=== PATIENT | female | born 1985 | race Caucasian/White ===

== ENCOUNTER → 2017-10-19 | Outpatient (CLI) | payer OTHER ==
--- NOTE | 2017-10-19 09:29 | MR ---
EXAMINATION TYPE: MR brain wo/w con DATE OF EXAM: 10/19/2017 COMPARISON: NONE HISTORY: Headache TECHNIQUE: Multiplanar, multisequence images of the brain and brainstem is performed without and with IV contras t, utilizing 7 mL intravenous Gadavist . FINDINGS: Diffusion weighted images demonstrate no evidence of a recent infarct or other diffusion ab normality. There is no extra-axial fluid collection or significant white matter signal abnormality. The ventricular system and cisternal spaces are normal in size and appearance. The brain volume is age appropriate. Major intracranial flow voids are maintained. Midline structures demonstrate normal morphology. The craniocervical junction appears within normal limits. Post contrast images demonstrate no abnormal enhancement. No focal stenoses within the vascu lature. The dural venous sinuses appear patent. Very minimal mucosal thickening is seen within the et hmoid sinuses. The visualized sinuses are clear and the globes are intact. IMPRESSION: 1. No MR evidence of demyelinating disease, abnormal intracranial enhancement, or intracranial mass. No MR findings to correspond to the patient's complaint of headaches. 2. Very minimal mucosal thickening localized to the ethmoid sinuses only.
== END | disposition home or self-care (01) ==
LOC: RADMRIMAIN 08:33
PROVIDERS: ATTEND Internal Medicine
DX: G44.1 Vascular headache, not elsewhere classified (principal)
CPT/HCPCS: 70553; A9581

== ENCOUNTER → 2018-12-27 | Outpatient (CLI) | payer BC ==
[2018-12-27 10:04] VITALS: BP 134/94; PULSE 80; RESP 16; TEMP 98.1; BMI 27.4
--- NOTE | 2018-12-27 10:53 | P.HPOB ---
History of Present Illness H&P Date: 12/27/18 Chief Complaint: The patient is here for her routine gynecologic exam. This is a 33-year-old with an LMP of 12/04/2018. Her is status post vasectomy. The patient is here to assist establish with this office. It has been about one year since her last pelvic exam. The patient is without gynecologic complaints. Menses are regular every month. Review of Systems The patient's weight has been stable over the last year. She denies respiratory, cardiac, or G.I. problems. 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 No history of cervical dysplasia. History of Any Multi-Drug Resistant Organisms: None Reported Past Surgical History: Section Additional Past Surgical History / Comment(s): with 2nd . D&C following miscarriage. Past Psychological History: No Psychological Hx Reported Smoking Status: Never smoker Past Alcohol Use History: Occasional (2 per week) Past Drug Use History: None Reported Additional History: She has been since 2009. 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 Father Family Medical History: Myocardial Infarction ([place]) Additional Family Medical History / Comment(s): Paternal grandmother had colon cancer. Medications and Allergies Home Medications Medication Instructions Recorded Confirmed Type Multivitamin [Multivitamins Adult 1 each PO DAILY 12/27/18 12/27/18 History Gummies] Allergies Allergy/AdvReac Type Severity Reaction Status Date / Time No Known Allergies Allergy Unverified 12/27/18 10:04 Exam Vital Signs Temp Pulse Resp BP Pulse Ox 12/27/18 09:45 98.1 F 80 16 134/94 99 Intake and Output 12/26/18 12/27/18 12/27/18 22:59 06:59 14:59 Other: Weight 74.389 kg Height 5'5", weight 164 pounds, BMI 27.3. This is a well-developed well-nourished white female who is alert and oriented times 3 in no acute distress. HEENT: Within normal limits. NECK: Supple without mass or thyromegaly. CHEST AND LUNGS: Clear to auscultation. HEART: Regular rate and rhythm. BREASTS: Are without mass or discharge. AXILLARY EXAM: Negative for adenopathy. BACK: Negative for CVA tenderness. ABDOMEN: Soft, nontender, without palpable masses. PELVIC EXAM: Normal external genitalia. Cervix and vagina appear normal. There is no unusual discharge. The cervix is slightly friable upon doing the Pap smear. There is no evidence of prolapse. The uterus is midposition, nongravid size and nontender. There are no palpable adnexal masses or tenderness. RECTAL EXAM: negative for mass or tenderness and is negative for occult blood. EXTREMITIES: Nontender. IMPRESSION: 1. 33-year-old female with normal gynecologic exam whose is status post vasectomy. 2. Family history of colon cancer in 2 grandparents. 3. Mildly elevated blood pressure with no history of hypertension. PLAN: 1. Pap smear was performed. 2. Self breast awareness was discussed with the patient. 3. I have recommended rectal exams be done at the time of her annual well woman exam because of her family history of colon cancer. We will also check for occult blood when rectal exams are done. I have also recommended that she considered colonoscopy around the age of 43 and every 5 years thereafter. 4. Osteoporosis prevention was discussed. I have stressed the importance of adequate calcium, vitamin D and regular exercise. Recommended amounts of calcium and vitamin D were also discussed. 5. I have recommended that she check her own blood pressure on a regular basis and follow-up with Dr. Treadwell for blood pressure elevations. 6.She was advised to return in one year for her annual well woman exam.
== END | disposition home or self-care (01) ==
LOC: WWCWWP 09:38
PROVIDERS: ATTEND Obstetrics & Gynecology
DX: Z53.9 Procedure and treatment not carried out, unspecified reason (principal)

== ENCOUNTER → 2021-03-03 | Outpatient (CLI) | payer BC ==
[2021-03-03 15:24] VITALS: BP 121/86; PULSE 85; RESP 16; TEMP 98.2
--- NOTE | 2021-03-03 16:23 | P.HPOB ---
History of Present Illness H&P Date: 03/03/21 Chief Complaint: The patient is here for her routine gynecologic exam. This is a 35-year-old with an LMP of 02/09/2021. The patient's is status post mastectomy. She is still complaining of very heavy menstrual periods. Menstrual periods are regular every month lasting 7 days with 2-4 days of very heavy flow. The heavy flow typically starts on day 2 of the cycle. On the heavy days she can pass clots and soaked through her protection which has to be changed every 30-45 minutes on those days. She denies any significant pain with menstrual periods. Several years ago she was told she may have uterine fibroids, but she does not recall how big they were. Last year I had offered her meclofenamate sodium to try for her heavy menstrual periods, but she declined the medication at that time and continues to decline medicine for the heavy flow. She is otherwise without gynecologic complaints. Review of Systems The patient has lost 11 pounds over the last year. She has been trying to lose weight with dietary changes. She denies respiratory, cardiac, or G.I. problems. 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 No history of cervical dysplasia. History of Any Multi-Drug Resistant Organisms: None Reported Past Surgical History: Section Additional Past Surgical History / Comment(s): with 2nd . D&C following miscarriage. Past Psychological History: No Psychological Hx Reported Smoking Status: Never smoker Past Alcohol Use History: Occasional (15 per month) Additional Drug Use History / Comment(s): She denies smoking marijuana. She has tried edible cannabis, but states it was not for her and no longer uses this. Additional History: The patient has been since 2009. 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 - Past Family History Mother Family Medical History: Diabetes Mellitus Additional Family Medical History / Comment(s): Maternal grandfather had colon cancer. Father Family Medical History: Myocardial Infarction ([place]) Additional Family Medical History / Comment(s): Paternal grandmother had colon cancer. Medications and Allergies Home Medications Medication Instructions Recorded Confirmed Type Multivitamin [Multivitamins Adult 1 each PO DAILY 12/27/18 03/03/21 History Gummies] Ascorbic Acid [Vitamin C] 500 mg PO BID 01/09/20 03/03/21 History Cholecalciferol [Vitamin D3 (25 25 mcg PO DAILY 03/03/21 03/03/21 History Mcg = 1000 Iu)] Zinc 50 mg PO DAILY 03/03/21 03/03/21 History Allergies Allergy/AdvReac Type Severity Reaction Status Date / Time No Known Allergies Allergy Unverified 03/03/21 15:18 Exam Vital Signs Temp Pulse Resp BP Pulse Ox 03/03/21 15:19 98.2 F 85 16 121/86 99 Intake and Output 03/03/21 03/03/21 03/03/21 06:59 14:59 22:59 Other: Weight 66.678 kg Height 5 feet 4-1/2 inches, weight 147 pounds, BMI 24.8. This is a well-developed well-nourished white female who is alert and oriented times 3 in no acute distress. HEENT: Within normal limits. NECK: Supple without mass or thyromegaly. CHEST AND LUNGS: Clear to auscultation. HEART: Regular rate and rhythm. BREASTS: Are without mass or discharge. AXILLARY EXAM: Negative for adenopathy. BACK: Negative for CVA tenderness. ABDOMEN: Soft, nontender, without palpable masses. PELVIC EXAM: Normal external genitalia. Cervix and vagina appear normal. There is no unusual discharge. There is no evidence of prolapse. The uterus is midposition, nongravid size and nontender. There are no palpable adnexal masses or tenderness. RECTAL EXAM: There is a 1 cm external hemorrhoid which is noninflamed and nontender. Rectal exam is negative for mass or tenderness and is negative for occult blood. EXTREMITIES: Nontender. IMPRESSION: 1. 35-year-old female whose is status post vasectomy, with menorrhagia and no significant physical findings on exam today. 2. Family history of colon cancer in 2 grandparents. PLAN: 1. Pap smear cotest was performed. 2. Self breast awareness was discussed with the patient. We have also discussed symptoms associated with inflammatory breast cancer. 3. Blood tests will be drawn today and will include CBC and TSH. 4. I have recommended pelvic ultrasound to further evaluate her menorrhagia and to check for uterine fibroids. 5. We have had a long discussion regarding her menorrhagia. We've discussed options including meclofenamate sodium, oral contraception, Mirena IUD, endometrial ablation, and hysterectomy. She again is declining meclofenamate sodium and oral contraception. She also does not want anything put up inside her uterus. She will consider endometrial ablation. The ACOG FAQ handout on endometrial ablation was given to the patient. She will call if she would like to proceed with a referral for the endometrial ablation. 6. She has not received a Covid vaccination. She states she likes to avoid having things put into her body. I have reviewed benefits of the Covid vac cination and she was asked to reconsider getting the Covid vaccination. 7. She is declining any prescription medication for her external hemorrhoid which occasionally feels irritated. She states [id number] preparations seemed to work fine. 8. She was advised to return in one year for her annual well woman exam and as needed.
[2021-03-03 16:41] LABS: HCT 40.1 % (34.0-46.0); HGB 13.3 gm/dL (11.4-16.0); MCH 31.4 pg (25.0-35.0); MCHC 33.2 g/dL (31.0-37.0); MCV 94.7 fL (80.0-100.0); Mean Platelet Volume 9.4; Platelet Count 207 k/uL (150-450); RBC 4.24 m/uL (3.80-5.40); RDW 12.6 % (11.5-15.5)
== END ==
LOC: WWCWWP 15:09
PROVIDERS: ATTEND Obstetrics & Gynecology
DX: Z01.419 Encounter for gynecological examination (general) (routine) without abnormal findings (principal); N92.0 Excessive and frequent menstruation with regular cycle; Z80.0 Family history of malignant neoplasm of digestive organs
CPT/HCPCS: 84443; 85027

== ENCOUNTER → 2021-05-21 | Outpatient (CLI) | payer BC ==
--- NOTE | 2021-05-22 07:31 | US ---
EXAMINATION TYPE: US pelvic complete DATE OF EXAM: 05/21/2021 COMPARISON: NONE CLINICAL HISTORY: N92.0 MENORRHAGIA. Heavy periods, 3, para 2, miscarriage 1, history of c-se ction TECHNIQUE: . Transabdominal sonographic images of the pelvis were acquired. Date of LMP: 04/30/2021 EXAM MEASUREMENTS: Uterus: 9.6 x 3.0 x 4.0 cm Endometrial Stripe: 0.8 cm Right Ovary: 2.8 x 1.3 x 2.6 cm Left Ovary: 3.9 x 1.7 x 1.7 cm 1. Uterus: anteverted 2. Endometrium: wnl 3. Right Ovary: wnl 4. Left Ovary: wnl 5. Bilateral Adnexa: wnl 6. Posterior cul-de-sac: wnl IMPRESSION: Transabdominal pelvic ultrasound within normal limits.
== END | disposition home or self-care (01) ==
LOC: RADUSWWP 15:36
PROVIDERS: ATTEND Obstetrics & Gynecology
DX: N92.0 Excessive and frequent menstruation with regular cycle (principal); Z87.59 Personal history of other complications of pregnancy, childbirth and the puerperium
CPT/HCPCS: 76856

== ENCOUNTER → 2021-07-09 | Outpatient (CLI) | payer BC ==
[2021-07-09 15:53] LABS: Basophils % (A) 1 %; Eosinophils # (A) 0.1 k/uL (0-0.7); Eosinophils % (A) 2 %; HCT 42.5 % (34.0-46.0); HGB 13.7 gm/dL (11.4-16.0); Lymphocytes # (A) 2.1 k/uL (1.0-4.8); Lymphocytes % (A) 33 %; MCH 30.9 pg (25.0-35.0); MCHC 32.2 g/dL (31.0-37.0); MCV 96.1 fL (80.0-100.0); Mean Platelet Volume 9.6; Monocytes # (A) 0.4 k/uL (0-1.0); Monocytes % (A) 6 %; Neutrophils # (A) 3.4 k/uL (1.3-7.7); Neutrophils % (A) 55 %; Platelet Count 219 k/uL (150-450); RBC 4.43 m/uL (3.80-5.40); RDW 13.3 % (11.5-15.5); WBC 6.2 k/uL (3.8-10.6)
== END | disposition home or self-care (01) ==
LOC: LABPAT 15:07
PROVIDERS: ATTEND Obstetrics & Gynecology
DX: Z01.812 Encounter for preprocedural laboratory examination (principal); N92.0 Excessive and frequent menstruation with regular cycle
CPT/HCPCS: 36415; 85025

== ENCOUNTER 2021-07-13 07:40 | Day surgery (SDC) | payer BC ==
[2021-07-07 14:51] VITALS: BMI 24.1
--- NOTE | 2021-07-09 14:26 | HP ---
HISTORY AND PHYSICAL REASON FOR ADMISSION: Surgery scheduled on Tuesday July 13, 2021 HISTORY OF PRESENT ILLNESS: The patient is a 35-year-old 3, para 2-0-1-2, who presented on referral with complaints of increasing menorrhagia over the last several years. She did have cycles on a regular basis, every 28 days, which she is now having to change protection every 45 minutes on heavy days. She has bled through protection on a fairly regular basis. Her has a vasectomy in place. The patient is not interested in hormonal manipulation or other management tools for menorrhagia. She has requested an endometrial ablation. PAST MEDICAL HISTORY: Significant for menorrhagia. PAST SURGICAL HISTORY: Significant for previous section x2, as well as a D and C following miscarriage. 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 Method of contraception is vasectomy. Gynecologic history is unremarkable with no history of any infections to include STDs. FAMILY HISTORY: Noncontributory. 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 She is a nonsmoker and reports occasional alcohol. No other social concerns. CURRENT MEDICATIONS: Include vitamin C and vitamin D as well as a multivitamin daily and zinc daily. ALLERGIES: No known drug allergies. REVIEW OF SYSTEMS: Confined to history of present illness. PHYSICAL EXAMINATION: Vital signs are stable. The patient is afebrile. In general, this is a well- developed, well-nourished white female in no acute distress. Her heart has a regular rhythm and rate without murmur. Her lungs are clear to auscultation bilaterally in all [place]. Her abdomen is nondistended, has normoactive bowel sounds, soft, nontender, without any palpable masses, hepatosplenomegaly, or hernias. Her extremities without any cyanosis, clubbing, or edema and are nontender to palpation bilaterally. Pelvic examination demonstrates normal external genitalia and BUS with normal vaginal mucosa and cervix. There is no cervical motion tenderness. Uterus is 4-5 weeks in size, mid plane, mobile, nontender, normal in shape. The adnexa are normal, nontender without mass bilaterally. ASSESSMENT AND PLAN: Menorrhagia. The patient is well aware of medical alternatives, but has requested to proceed with diagnostic hysteroscopy with endometrial ablation, preferably Genoveva but may be NovaSure. Risks and complications of the procedures have been thoroughly discussed including risk for bleeding, bleeding requiring transfusion, infection, and injury to local structures. These include specifically uterine perforation, Asherman syndrome, and subsequent hematometra. She has understood all these risks and agrees to proceed. The patient is scheduled for the procedure on the morning of July 13, as outlined above. MMODL / IJN: [id number] /
[~2021-07-13 07:40] MED LIST: DEXAMETHASONE SOD PHOSPHATE 4 MG/ML 1 ML VIAL IV ONE; HYDROmorphone 0.5 MG/0.5 ML SYRINGE IVP PRN; LACTATED RINGERS 1,000 ML IV SCH; LIDOCAINE 1% (10MG/ML) FOR IV START INTRADERMA PRN; ONDANSETRON 4 MG/2 ML VIAL IVP ONE; Pre Op ABX Message 1 EACH MISC MISCELLANE ONE; SCOPOLAMINE 1.5MG/72HR PATCH TRANSDERM ONE
[2021-07-13] MEDS ORDERED: LACTATED RINGERS 1,000 ML IV ONE (07:57)
[2021-07-13] MEDS ORDERED: LIDOCAINE 1% INJ 10MG/ML (20 ML MDV) ONE (09:34)
[2021-07-13] MEDS ORDERED: PROPOFOL 10 MG/ML 20 ML VIAL IV ONE (09:34)
[2021-07-13] MEDS ORDERED: fentaNYL (PF) 50 MCG/ML 2 ML AMP ONE (09:34)
[2021-07-13] MEDS ORDERED: MIDAZOLAM 2 MG/2 ML VIAL ONE (09:34)
[2021-07-13] MEDS ORDERED: KETOROLAC 15 MG/ML 1 ML VIAL ONE (09:34)
[2021-07-13] MEDS ORDERED: IBUPROFEN 600 MG TAB PO PRN (10:16)
[2021-07-13] MEDS ORDERED: METOCLOPRAMIDE 5 MG/ML 2 ML VIAL IVP PRN (10:16)
[2021-07-13] MEDS ORDERED: diphenhydrAMINE 50 MG/ML 1 ML VIAL IVP PRN (10:16)
[2021-07-13] MEDS ORDERED: SIMETHICONE 80 MG CHEWABLE PO PRN (10:16)
[2021-07-13] MEDS ORDERED: ONDANSETRON 4 MG/2 ML VIAL IVP PRN (10:16)
[2021-07-13] MEDS ORDERED: Acetaminophen-Codeine 300-30mg TAB PO PRN ×2 (10:16)
[2021-07-13] MEDS ORDERED: KETOROLAC 30 MG/ML 1 ML VIAL IVP PRN (10:16)
[2021-07-13 10:20] VITALS: TEMP 97.2
--- NOTE | 2021-07-13 10:22 | P.OP ---
Date of Procedure: 07/13/21 Preoperative Diagnosis: #1. Menorrhagia Postoperative Diagnosis: Same Procedure(s) Performed: #1. Diagnostic hysteroscopy #2. Endometrial curettage #3. Genoveva endometrial ablation Anesthesia: other (Gen. by LMA) Surgeon: See Cantu Estimated Blood Loss (ml): 5 IV fluids (ml): 300 Urine output (ml): 150 Pathology: other (Endometrial curettings) Condition: stable Disposition: PACU Operative Findings: Preoperative pelvic examination demonstrated roughly 5 week midplane mobile normal shaped uterus with normal adnexa bilaterally. The uterus sounded to 8 cm while the cervical length with 3 cm making for a setting on the Genoveva tool of 5 cm. The preoperative hysteroscopic result demonstrated both tubal ostia and a moderate amount of shaggy endometrial tissue present in the cavity. As a result, a curettage was carried out for small amount of tissue sent to pathology for diagnoses. The postprocedural result appeared to be excellent. The patient is a borderline candidate for vaginal hysterectomy should it become necessary in the future. Description of Procedure: The patient was prepped and draped in usual fashion after general anesthesia was administered by the anesthesiologist. The anterior lip the cervix was grasped with single-tooth tenaculum after placing a weighted speculum. The bladder was drained of approximately 150 mL of clear beau urine. The uterus was sounded to 8 cm as noted above. Serial dilation was carried out to admit the diagnostic hysteroscope. The cervical length was determined with a Hegar dilator to be 3 cm. The diagnostic hysteroscope was placed into the cavity and the cavity distended with normal saline. The findings are as noted above with bilateral tubal ostia seen and a moderate amount of shaggy endometrial tissue was seen throughout. The scope was then set aside and a Telfa placed in the vagina. A medium sharp curette was utilized to thoroughly and circumferentially curet the and myometrial cavity with its contents onto the Telfa which was then passed for pathological diagnoses. The Genoveva tool was placed into the endometrial cavity, opened, and seated well. The cervical dilation balloon was insufflated to create a seal. Once the seal was created, the program was started with the cavity check passing without difficulty. After the full 2 minutes of ablation, the tool was disengaged, closed, and discarded. The postprocedural hysteroscopic result appeared to be excellent. All instrumentation was then removed. Both tenaculum sites were noted to be bleeding were made hemostatic with pressure. Estimated blood loss for the entire case was less than 5 mL. There were no complications. All sponge, instrument, and needle counts were correct. The patient tolerated the procedure well and proceeded to the recovery room in stable condition.
[2021-07-13 10:30] VITALS: RESP 16
[2021-07-13] MEDS ORDERED: LACTATED RINGERS 1,000 ML IV SCH (10:30)
[2021-07-13 11:09] VITALS: BP 133/88; PULSE 75
[2021-07-14] MEDS ORDERED: ACETAMINOPHEN TAB 325 MG TAB PO PRN (10:17)
== END 2021-07-13 11:37 | disposition home or self-care (01) ==
LOC: OR 07:40
PROVIDERS: ATTEND Obstetrics & Gynecology
DX: N85.00 Endometrial hyperplasia, unspecified (principal); N92.0 Excessive and frequent menstruation with regular cycle; K21.9 Gastro-esophageal reflux disease without esophagitis; Z91.018 Allergy to other foods
CPT/HCPCS: 81025; 88305; 58563; J2250; J1100; J2405; J2001; J3010; J1885; J2704

== ENCOUNTER → 2021-08-25 | Outpatient (CLI) | payer BC ==
--- NOTE | 2021-08-25 15:16 | MR ---
EXAMINATION TYPE: MR brain wo/w con DATE OF EXAM: 08/25/2021 COMPARISON: 10/19/2017 HISTORY: 35-year-old female H53.2, R20.0, Dizziness, optical migraines, diplopia, anesthesia of skin TECHNIQUE: Multiplanar, multisequence images of the brain and brainstem were acquired before and aft er administration of 6.5 mL IV Gadavist. Diffusion weighted imaging is performed. FINDINGS: No evidence for acute infarction, hemorrhage, mass, mass effect, midline shift, herniation, effacemen t of basal cisterns, or extra-axial fluid collection. The ventricles and sulci are age-appropriate. Major intracranial flow voids are intact. T2/FLAIR weighted sequences show white matter signal abnormality Midline structures demonstrate normal morphology. The craniocervical junction is normal. Post contrast images demonstrate no evidence of pathologic enhancement. Dural venous sinuses are pat ent. Tiny 6 mm mucosal retention cyst medial wall of the right maxillary sinus. Slight rightward nasal sep seamus deviation. Interval improvement in the patient's previous ethmoid sinus disease. Mild residual mu cosal thickening posterior ethmoid air cells extending into the right sphenoid sinus. Globes are inta ct. IMPRESSION: 1. No intracranial abnormality, white matter lesions, or abnormal enhancement is identified. 2. Residual mild paranasal sinus disease involving the posterior right ethmoid air cells and right sp henoid sinus.
== END | disposition home or self-care (01) ==
LOC: RADMRIMAIN 10:14
PROVIDERS: ATTEND Nurse Practitioner Family
DX: J34.89 Other specified disorders of nose and nasal sinuses (principal)
CPT/HCPCS: 70553; A9585

== ENCOUNTER → 2022-10-19 | Outpatient (CLI) | payer BC ==
[2022-10-19 15:25] VITALS: BP 126/87; PULSE 74; RESP 16; TEMP 98.5
--- NOTE | 2022-10-19 16:09 | P.HPOB ---
History of Present Illness H&P Date: 10/19/22 Chief Complaint: The patient is here for her routine gynecologic exam. This is a 37-year-old 012 with an LMP of 10/17/2022. The patient's is status post vasectomy. The patient has a history of hypermenorrhea with 2-4 days of very heavy flow, but underwent an endometrial ablation in June 2021. Since then, her menstrual periods have been much director graphics. Still last about 4-7 days, but are much better. She has not had issues with menstrual pain, however, she has noticed that her migraine headaches seem to be more common right before her menstrual period or during a menstrual period. Review of Systems The patient has gained 6 pounds over the last year. She denies respiratory, cardiac, or G.I. problems. Neurologic: Occasional migraine headaches as in the HPI. Past Medical History Past Medical History: No Reported History Additional Past Medical History / Comment(s): Migraine headaches which can be associated with vertigo. PAST LIP OF SHANK CUTTER HISTORY: She has no history of STDs. History of Any Multi-Drug Resistant Organisms: None Reported Past Surgical History: Section, Uterine Ablation Additional Past Surgical History / Comment(s): with 2nd . D&C following miscarriage. Endometrial ablation in 2021. Past Anesthesia/Blood Transfusion Reactions: Motion Sickness Past Psychological History: No Psychological Hx Reported Smoking Status: Never smoker Past Alcohol Use History: Occasional (5 per month) Past Drug Use History: None Reported Additional Drug Use History / Comment(s): She denies smoking marijuana. She has tried edible cannabis, but states it was not for her and no longer uses this. Additional History: She has been since 2009. 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 - Past Family History Mother Family Medical History: Diabetes Mellitus Additional Family Medical History / Comment(s): Maternal grandfather had colon cancer. Father Family Medical History: Myocardial Infarction ([place]) Additional Family Medical History / Comment(s): Paternal grandmother had colon cancer. Medications and Allergies Home Medications Medication Instructions Recorded Confirmed Type Multivitamin [Multivitamins Adult 1 each PO DAILY 12/27/18 10/19/22 History Gummies] Ascorbic Acid [Vitamin C] 500 mg PO BID 01/09/20 10/19/22 History Cholecalciferol [Vitamin D3 (25 25 mcg PO DAILY 03/03/21 10/19/22 History Mcg = 1000 Iu)] Zinc 50 mg PO DAILY 03/03/21 10/19/22 History Rimegepant Sulfate [Nurtec Odt] 75 mg PO DIRECTED PRN 10/19/22 10/19/22 His tory Allergies Allergy/AdvReac Type Severity Reaction Status Date / Time almond Allergy Rash/Hives Verified 10/19/22 15:20 Exam Vital Signs Temp Pulse Resp BP Pulse Ox 10/19/22 15:21 98.5 F 74 16 126/87 100 Intake and Output 10/19/22 10/19/22 10/19/22 06:59 14:59 22:59 Other: Weight 69.4 kg Height 5 feet 5 inches, weight 153 pounds, BMI 25.5. This is a well-developed well-nourished white female who is alert and oriented times 3 in no acute distress. HEENT: Within normal limits. NECK: Supple without mass or thyromegaly. CHEST AND LUNGS: Clear to auscultation. HEART: Regular rate and rhythm. BREASTS: Are without mass or discharge. AXILLARY EXAM: Negative for adenopathy. BACK: Negative for CVA tenderness. ABDOMEN: Soft, nontender, without palpable masses. PELVIC EXAM: Normal external genitalia. Cervix and vagina appear normal. There is a small amount of menstrual type blood in the vagina which is consistent with her recent LMP. There is no unusual discharge. There is no evidence of prolapse. The uterus is midposition, nongravid size and nontender. There are no palpable adnexal masses or tenderness. RECTAL EXAM: There is a 1 cm external hemorrhoid which is noninflamed. Rectal exam is negative for mass or tenderness. EXTREMITIES: Nontender. IMPRESSION: 1. 37-year-old female whose is status post vasectomy who is status post endometrial ablation in 2021 with normal gynecologic exam. 2. Migraine headaches that seem to be worse around the time of her menstrual period. PLAN: 1. Pap smear was deferred since she had a negative Pap smear cotest on 03/03/2021. 2. Self breast awareness was discussed with the patient. We have also discussed symptoms associated with inflammatory breast cancer. Screening mammogram will be started at age 38. We will plan on doing this at her next annual well woman examination. 3. Osteoporosis prevention was discussed. I have stressed the importance of adequate calcium, vitamin D and regular exercise. Recommended amounts of calcium and vitamin D were also discussed. 4. We have discussed her headaches that seem to be worse around the time of her menstrual period. With regular menstrual periods I do not feel that hormone testing would be very helpful in this situation. I do not think hormonal manipulation would be warranted at this time. I recommended that she try to avoid large amounts of simple sugars, caffeine, alcohol and a regular sleep patterns. She will also try to see if there are any environmental triggers such as fumes, chemicals or foods/beverages that she can associated with the headaches. I recommended taking NSAID type medication even just before her mens trual periods to see if she can help to decrease the frequency of headaches at that time. She does take ibuprofen 800 mg once a day at the times of that headaches. Trying to start this medication before the headaches start may be beneficial if she is predictable as to when she notices them. I have also recommended that she consider seeing a neurologist if they're persisting especially if they are associated with vertigo. 5. She was advised to return in one year for her annual well woman exam and as needed.
== END ==
LOC: WWCWWP 15:14
PROVIDERS: ATTEND Obstetrics & Gynecology
DX: Z01.419 Encounter for gynecological examination (general) (routine) without abnormal findings (principal); G43.909 Migraine, unspecified, not intractable, without status migrainosus; Z80.0 Family history of malignant neoplasm of digestive organs; Z82.49 Family history of ischemic heart disease and other diseases of the circulatory system; Z83.3 Family history of diabetes mellitus